=== PATIENT | female | born 1970 | race Caucasian/White ===

== ENCOUNTER 2022-10-19 14:12 | Outpatient (CLI) | payer OTHER ==
--- NOTE | 2022-10-19 15:14 | XRAY Report ---
PROCEDURE: Chest 2 View X-Ray INDICATIONS: Covid-19 positive. Treated with antibiotic therapy. TECHNIQUE: 2 views of the chest were acquired. COMPARISON: Chest x-ray, 09/02/2020. FINDINGS: Surgical changes and devices: None. Lungs and pleura: Right lower lobe infiltrates consistent with pneumonia. No pleural effusions or pn eumothorax. Mediastinum: Mediastinal contours appear normal. Heart size is normal. Bones and chest wall: No suspicious bony lesions. Overlying soft tissues appear unremarkable. IMPRESSION: Right lower lobe pneumonia. Suspect atypical pneumonia. Reviewed by: Andrew Oneil MD on 10/19/2022 3:13 PM PDT Approved by: Andrew Oneil MD on 10/19/2022 3:13 PM PDT Station ID: [id number]
== END 2022-10-19 14:13 | disposition home or self-care (01) ==
LOC: DI.S 14:12
PROVIDERS: ATTEND Physician Assistant
DX: J18.9 Pneumonia, unspecified organism (principal)